=== PATIENT | female | born 1950 | race Caucasian/White ===

== ENCOUNTER 2023-04-11 10:51 | Emergency (ER) | payer MEDICARE, SELFPAY ==
[2023-04-11 11:07] VITALS: BP 145/83; PULSE 90; RESP 14; TEMP 37.4; O2SAT 97
--- NOTE | 2023-04-11 11:13 | ED.URI ---
HPI - URI/Sore Throat General Chief Complaint: Upper Respiratory Infection Stated Complaint: Sore Throat/Cough Time Seen by Provider: 04/11/23 11:13 Source: patient Mode of arrival: ambulatory Limitations: no limitations History of Present Illness HPI Narrative: 72-year-old female presents with complaint of nasal congestion, sore throat, cough, headache and body aches started yesterday morning. Afebrile. No chest pain or shortness of breath. Patient not taking any [id number] medications to treat her symptoms. States whenever she gets sick she calls her primary care physician asking what medication she can take due to her high blood pressure. Denies nausea vomiting diarrhea. Took home COVID test yesterday morning that was negative. All systems reviewed and negative except as noted above. Related Data Home Medications Medication Instructions Recorded Confirmed albuterol sulfate 90 mcg/actuation inhalation 04/11/23 aerosol inhaler amlodipine 10 mg tablet mg 04/11/23 buspirone 5 mg tablet mg 04/11/23 famotidine 40 mg tablet mg 04/11/23 fluticasone propionate 230 inhalation 04/11/23 mcg-salmeterol 21 mcg/actuation HFA inhaler (Advair HFA) fluticasone propionate 50 intranasal 04/11/23 mcg/actuation nasal spray,suspension lisinopril 40 mg tablet mg 04/11/23 loratadine 10 mg tablet mg 04/11/23 metoprolol succinate 50 mg mg PO 04/11/23 tablet,extended release 24 hr rosuvastatin 20 mg tablet mg 04/11/23 tizanidine 2 mg capsule mg 04/11/23 Allergies Allergy/AdvReac Type Severity Reaction Status Date / Time cephalexin Allergy Other Verified 04/11/23 11:10 iodine Allergy Rash Verified 04/11/23 11:10 Review of Systems Review of Systems: CONSTITUTIONAL: Denies fever, chills, or sweats. reports fatigue. EYES: Denies visual changes, redness, or discharge. ENT: reports rhinorrhea, congestion, sore throat. Denies otalgia. CARDIOVASCULAR: Denies chest pain, palpitations, or edema. RESPIRATORY: Reports cough. Denies dyspnea. GASTROINTESTINAL: Denies abdominal pain, nausea, vomiting, or diarrhea. GENITOURINARY: Denies dysuria or hematuria. SKIN: Denies rash or itching. MUSCULOSKELETAL: Denies back pain, joint pain, or myalgia. NEUROLOGIC: Denies headache, numbness, or weakness. PSYCHIATRIC: Denies anxiety or depression. All other systems reviewed are negative, except as documented in HPI. PMFSH Comments At time of signature, agree with nursing past medical, surgical, social and family history. There is no relevant family history pertinent to the presenting complaint. Exam Narrative: GENERAL: This is a well-nourished, well-developed patient, in no apparent distress. HEAD: normocephalic, atraumatic. EYES: PERRL. Sclera clear/white. Vision is grossly intact. EARS: External ears normal, auditory canals clear and without drainage, TMs normal without perforation. Hearing grossly intact. NOSE: External nose normal with clear nasal drainage, mild congestion. Significant erythema or swelling to nares. THROAT: Mucous membranes moist, Erythematous with postnasal drainage. NECK: Neck supple, non-tender without lymphadenopathy, masses or thyromegaly. CARDIOVASCULAR: Regular rate and rhythm without murmurs, gallops, or rubs. RESPIRATORY: Clear to auscultation. Breath sounds equal bilaterally. No wheezes, rales, or rhonchi. SKIN: warm, Dry, intact with no suspicious lesions or rash, good texture and turgor. NEURO: awake, alert, and oriented to person, place and time. There were no obvious focal neurologic abnormalities. EXTREMITIES: No joint tenderness, effusion, or edema noted. Course Course Level of Care: Express Care Visit Vital Signs Vital signs: Vital Signs Temperature 37.4 C 04/11/23 11:07 Pulse Rate 90 04/11/23 11:07 Respiratory Rate 14 04/11/23 11:07 Blood Pressure 145/83 H 04/11/23 11:07 Pulse Oximetry 97 04/11/23 11:07 Oxygen Delivery Room Air 0
== END 2023-04-11 11:36 | disposition home or self-care (01) ==
PROVIDERS: Emergency Provider Nurse Practitioner Family
DX: J06.9 Acute upper respiratory infection, unspecified (principal); Z20.822 Contact with and (suspected) exposure to COVID-19; E78.00 Pure hypercholesterolemia, unspecified; I10 Essential (primary) hypertension; K21.9 Gastro-esophageal reflux disease without esophagitis; M19.90 Unspecified osteoarthritis, unspecified site
CPT/HCPCS: 87081; 87426; 87880; 99213; C9803; G0463

== ENCOUNTER 2023-10-24 11:23 | Emergency (ER) | payer MEDICARE, SELFPAY ==
[2023-10-24 12:02] VITALS: BP 138/92; PULSE 71; RESP 16; TEMP 36.4; O2SAT 98
--- NOTE | 2023-10-24 13:28 | ED.GENADULT ---
HPI - General Adult General Chief complaint: Skin/Abscess/Foreign Body Stated complaint: Wound On Left Foot Source: patient Mode of arrival: ambulatory Limitations: no limitations History of Present Illness HPI narrative: Patient presents for evaluation of redness and swelling to the left great toe for last 2 days. She indicates her second and first digits of the left foot have been rubbing against one another. She put a Band-Aid around the 2nd digit today and that seemed to help. She is not diabetic. She had bunion surgery on another digit in the past. She rates her pain as 6/10 in severity and without descriptive quality. No fever, chills, nausea, vomiting or drainage from the area. Related Data Home Medications Medication Instructions Recorded Confirmed albuterol sulfate 90 mcg/actuation inhalation 04/11/23 aerosol inhaler amlodipine 10 mg tablet mg 04/11/23 buspirone 5 mg tablet mg 04/11/23 famotidine 40 mg tablet mg 04/11/23 fluticasone propionate 230 inhalation 04/11/23 mcg-salmeterol 21 mcg/actuation HFA inhaler (Advair HFA) fluticasone propionate 50 intranasal 04/11/23 mcg/actuation nasal spray,suspension lisinopril 40 mg tablet mg 04/11/23 loratadine 10 mg tablet mg 04/11/23 metoprolol succinate 50 mg mg PO 04/11/23 tablet,extended release 24 hr rosuvastatin 20 mg tablet mg 04/11/23 tizanidine 2 mg capsule mg 04/11/23 Allergies Allergy/AdvReac Type Severity Reaction Status Date / Time cephalexin Allergy Other Verified 04/11/23 11:10 iodine Allergy Rash Verified 04/11/23 11:10 Review of Systems Review of Systems: CONSTITUTIONAL: Denies fever, chills, or sweats. EYES: Denies visual changes, redness, or discharge. ENT: Denies rhinorrhea, congestion, sore throat, or otalgia. CARDIOVASCULAR: Denies chest pain, palpitations, or edema. RESPIRATORY: Denies cough or dyspnea. GASTROINTESTINAL: Denies abdominal pain, nausea, vomiting, or diarrhea. GENITOURINARY: Denies dysuria or hematuria. SKIN: reports redness to the 1st and 2nd digits of the left foot MUSCULOSKELETAL: reports swelling and pain in the left great NEUROLOGIC: Denies headache, numbness, dizziness, or weakness. PSYCHIATRIC: Denies anxiety or depression. [facility] Past Medical History Medical History Hypertension Surgical History Surgical History History of bunionectomy Family History Family History Mother Family history non-contributory Social History Social History Smoking status: Former smoker Substance use: never Gender identity (if verbalized by the patient): Female Spiritual care concerns: No Exam Narrative: GENERAL: Well-appearing, well-nourished, and in no acute distress. HEAD: Normocephalic, atraumatic. EYES: PERRLA and EOMI. ENT: Nares clear, no rhinorrhea or epistaxis. Mucous membranes moist. Oropharynx without tonsillar hypertrophy exudate or other lesions. Bilateral TMs pearly peterson nonbulging NECK: Supple. No adenopathy or masses. No carotid bruits or JVD CHEST: Clear to auscultation. No respiratory distress. No wheezes rales or rhonchi HEART: Regular rate and rhythm. No murmur heard. Normal peripheral pulses. ABDOMEN: Soft, nontender, nondistended, normal active bowel sounds. EXTREMITIES: Normal range of motion. No edema. SKIN: there is redness to the inner aspect interphalangeal joint of the left great toe with associated tenderness NEURO: No focal deficits. Alert and oriented x3. PSYCH: Normal mood and affect. Course Course Emergency Course: this is a 73-year-old female who presented for evaluation of pain, redness and swelling to the left great toe. She has evidence of a bunion. Appears that she is developing mild celluli
== END 2023-10-24 13:30 | disposition home or self-care (01) ==
PROVIDERS: Emergency Provider Nurse Practitioner
DX: M21.612 Bunion of left foot (principal); L03.032 Cellulitis of left toe; Z87.891 Personal history of nicotine dependence; I10 Essential (primary) hypertension
CPT/HCPCS: 99213; G0463

== ENCOUNTER 2023-12-14 12:40 | Emergency (ER) | payer MEDICARE, SELFPAY ==
--- NOTE | ~2023-12-14 | XR_ITS ---
EXAMINATION: XR chest 2V 12/14/2023 14:04 INDICATION: Productive cough and wheezing PROCEDURE: 2 view chest COMPARISON: No prior studies for comparison. FINDINGS: The lungs are clear. The lungs are hyperinflated which is consistent with, but not diagnost ic of chronic obstructive pulmonary disease. The cardiomediastinal silhouette is within normal limit s. There are no pleural effusions. There is no pneumothorax suspected. IMPRESSION: 1: NO ACUTE CARDIOPULMONARY DISEASE. Reviewed, dictated and finalized at location L.
[2023-12-14 13:02] VITALS: BP 117/65; PULSE 83; RESP 16; TEMP 36.4; O2SAT 99
--- NOTE | 2023-12-14 14:01 | ED.GENADULT ---
HPI - General Adult General Chief complaint: Upper Respiratory Infection Stated complaint: sinus issue , wheezing cough Source: patient Mode of arrival: ambulatory Limitations: no limitations History of Present Illness HPI narrative: Patient presents for evaluation of respiratory symptoms for the last 3-4 days. She reports sinus congestion, yellow nasal discharge, cough and wheezing. She has an underlying history of COPD. She denies any fever, chills, nausea, vomiting, diarrhea. She does not smoke. she is visiting [place] as her sister was terminally ill and a few days ago. She states her symptoms are worse at night. She took Coricidin for symptoms. Related Data Home Medications Medication Instructions Recorded Confirmed albuterol sulfate 90 mcg/actuation 2 puff inhalation Q4-6H 04/11/23 12/14/23 aerosol inhaler amlodipine 10 mg tablet 10 mg PO DAILY 04/11/23 12/14/23 buspirone 5 mg tablet 5 mg PO DAILY 04/11/23 12/14/23 famotidine 40 mg tablet 40 mg PO DAILY 04/11/23 12/14/23 fluticasone propionate 230 2 puff inhalation DAILY 04/11/23 12/14/23 mcg-salmeterol 21 mcg/actuation HFA inhaler (Advair HFA) fluticasone propionate 50 2 spray intranasal DAILY 04/11/23 12/14/23 mcg/actuation nasal spray,suspension lisinopril 40 mg tablet 40 mg PO DAILY 04/11/23 12/14/23 loratadine 10 mg tablet 10 mg PO DAILY 04/11/23 12/14/23 metoprolol succinate 50 mg 50 mg PO DAILY 04/11/23 12/14/23 tablet,extended release 24 hr rosuvastatin 20 mg tablet 20 mg PO DAILY 04/11/23 12/14/23 tizanidine 2 mg capsule 2 mg PO DAILY 04/11/23 12/14/23 Allergies Allergy/AdvReac Type Severity Reaction Status Date / Time cephalexin Allergy Other Verified 12/14/23 12:46 iodine Allergy Rash Verified 12/14/23 12:46 Review of Systems Review of Systems: CONSTITUTIONAL: Denies fever, chills, or sweats. EYES: Denies visual changes, redness, or discharge. ENT: Reports sinus congestion, thick yellow drainage. CARDIOVASCULAR: Denies chest pain, palpitations, or edema. RESPIRATORY: Reports cough and wheezing. GASTROINTESTINAL: Denies abdominal pain, nausea, vomiting, or diarrhea. GENITOURINARY: Denies dysuria or hematuria. SKIN: Denies rash or itching. MUSCULOSKELETAL: Denies back pain, joint pain, or myalgia. NEUROLOGIC: Denies headache, numbness, dizziness, or weakness. PSYCHIATRIC: Denies anxiety or depression. COUNTS INCLUDE 234 BEDS AT THE [facility] Past Medical History Medical History (Updated 12/14/23 @ 14:21 by GUZMAN Mckeon, PAULINA) COPD (chronic obstructive pulmonary disease) Hypertension Surgical History Surgical History History of bunionectomy Family History Family History Mother Family history non-contributory Social History Social History Smoking status: Former smoker Substance use: never Gender identity (if verbalized by the patient): Female Spiritual care concerns: No Exam Narrative: GENERAL: Well-appearing, well-nourished, and in no acute distress. HEAD: Normocephalic, atraumatic. EYES: PERRLA and EOMI. ENT: thick yellow drainage in bilateral nares. Mucous membranes moist. Oropharynx without tonsillar hypertrophy exudate or other lesions. Bilateral TMs pearly peterson nonbulging NECK: Supple. No adenopathy or masses. No carotid bruits or JVD CHEST: Wheezing noted with inspiration and expiration in bilateral lung ramos posteriorly HEART: Regular rate and rhythm. No murmur heard. Normal peripheral pulses. ABDOMEN: Soft, nontender, nondistended, normal active bowel sounds. EXTREMITIES: Normal range of motion. No edema. SKIN: Warm, dry, no rash. NEURO: No focal deficits. Alert and oriented x3. PSYCH: Normal mood and affect. Course Course Emergency Course: This is a 73-year-old female who presented for evaluation of
== END 2023-12-14 14:20 | disposition home or self-care (01) ==
PROVIDERS: Emergency Provider Nurse Practitioner
DX: J32.9 Chronic sinusitis, unspecified (principal); J44.1 Chronic obstructive pulmonary disease with (acute) exacerbation; Z87.891 Personal history of nicotine dependence; I10 Essential (primary) hypertension
CPT/HCPCS: 71046; 99213; G0463